=== PATIENT | male | born 1995 | race Caucasian/White ===

== ENCOUNTER 2017-04-22 10:17 | Day surgery (SDC) | payer OTHER ==
[2017-04-21 14:12] VITALS: BMI 26.8
[2017-04-22] MEDS ORDERED: PROPOFOL 20 ML ONE ×3 (10:55)
[2017-04-22 11:51] VITALS: TEMP 98.2
[2017-04-22 12:36] VITALS: BP 105/61; PULSE 69
--- NOTE | 2017-04-25 12:24 | PATH ---
Surgical Pathology Report Patient Name: DEEP CLARKE [facility]. Rec. #: [id number] /Age/Gender: 1995 (Age: 21) / M Account: [id number] Location: U-ENDOSCOPY Taken: 04/22/2017 Received: 04/22/2017 Reported: 04/25/2017 Physicians: Sage Jon M.D. Specimen(s) Received A: BX ILEUM B: BX LEFT COLON C: BX RECTUM Clinical History Diarrhea, family history of colon cancer Proctitis, hemorrhoids, nodular mucosa ileum Final Diagnosis A. ILEUM, BIOPSY: SMALL INTESTINAL MUCOSA WITH REACTIVE FOLLICULAR HYPERPLASIA OF MUCOSA ASSOCIATED LYMPHOID TISSUE. NO ACTIVE INFLAMMATION IDENTIFIED. B. COLON, LEFT, BIOPSY: COLONIC MUCOSA WITH REACTIVE FOLLICULAR HYPERPLASIA OF MUCOSA ASSOCIATED LYMPHOID TISSUE. NO ACTIVE INFLAMMATION IDENTIFIED. NO MICROSCOPIC COLITIS IDENTIFIED. C. COLON, RECTUM, BIOPSY: COLONIC MUCOSA WITH REACTIVE FOLLICULAR HYPERPLASIA OF MUCOSA ASSOCIATED LYMPHOID TISSUE. NO ACTIVE INFLAMMATION IDENTIFIED. NO MICROSCOPIC COLITIS IDENTIFIED. Comment: The findings may indicate some form of antigenic stimulation to the GI tract. Electronically Signed Linus Vega M.D. Gross Description A. Received in formalin, labeled "biopsy ileum" are 2 lubin, irregular portions of soft tissue averaging 0.3 cm. in greatest dimension. The specimens are submitted in toto in one cassette. B. Received in formalin, labeled "biopsy left colon" is a lubin, irregular portion of soft tissue measuring 0.3 cm. in greatest dimension. The specimen is submitted in toto in one cassette. C. Received in formalin, labeled "biopsy rectum" are 2 lubin, irregular portions of soft tissue measuring 0.3 and 0.5 cm. in greatest dimension. The specimens are submitted in toto in one cassette. 04/22/2017 saudi04/22/2017
== END 2017-04-22 13:07 | disposition home or self-care (01) ==
LOC: JASU-ENDO 10:17
PROVIDERS: ATTEND Internal Medicine Gastroenterology
PROC: 0DBG8ZX Excision of Left Large Intestine, Via Natural or Artificial Opening Endoscopic, Diagnostic (ICD-10-PCS; 2017-04-22)
PROC: 0DBB8ZX Excision of Ileum, Via Natural or Artificial Opening Endoscopic, Diagnostic (ICD-10-PCS; principal; 2017-04-22 12:00)
DX: K52.9 Noninfective gastroenteritis and colitis, unspecified (principal); Z80.0 Family history of malignant neoplasm of digestive organs; K64.8 Other hemorrhoids
CPT/HCPCS: 88305-TC

== ENCOUNTER 2017-12-15 06:30 | Day surgery (SDC) | payer OTHER ==
[2017-12-13 18:43] VITALS: BMI 27.3
[2017-12-15] MEDS ORDERED: MIDAZOLAM HCL 2 MG/2 ML SINGLE DOSE VIAL ONE (08:08)
[2017-12-15] MEDS ORDERED: PROPOFOL 20 ML ONE ×3 (08:08)
--- NOTE | 2017-12-15 08:15 | HP ---
[facility] - Chief Complaint Chief Complaint: right wrist mass History of Present Illness: right wrist mass History Source: Patient Limitations to Obtaining History: No Limitations - Past Medical History Allergies/Adverse Reactions: Allergies Allergy/AdvReac Type Severity Reaction Status Date / Time No Known Allergies Allergy Verified 12/13/17 18:36 - Current Medications Current Medications: Home Medications Medication Instructions Recorded Multivitamin [One Daily] 1 each PO DAILY 04/21/17 Satellite Physical Exam - Physical Examination Vital Signs: Vital Signs Period Temp Pulse Resp BP Sys/Polk Pulse Ox Last 24 Hr 97.6 F 58 20 136/75 100 General Appearance: Well Nourished ENT: Clear Lung: Clear to auscultation Heart: Regular rate & rhythm Breasts: Soft Abdomen: Soft Extremities: No edema Satellite Impression/Plan - Impression/Plan Impression: right wrist mass Operative Procedure: excision mass right wrist Date to be Performed: 12/15/17
[2017-12-15] MEDS ORDERED: ceFAZolin SODIUM 1 GM VIAL ONE (08:25)
[2017-12-15] MEDS ORDERED: LIDOCAINE HCL 1%, 10 MG/ML (20ML VIAL) NR ONE ×2 (08:31)
[2017-12-15] MEDS ORDERED: BUPIVACAINE HCL/PF 0.5% (5MG/ML) 10 ML VIAL IJ ONE ×2 (08:31)
--- NOTE | 2017-12-15 09:02 | OP ---
Operative Note - Note: Operative Date: 12/15/17 Pre-Operative Diagnosis: right dorsal wrist mass Operation: excision mass, right wrist Post-Operative Diagnosis: Same as Pre-op Surgeon: Joseph Hand Anesthesiologist/SCRAP BREAKER: Miller Lizama Anesthesia: Local, MAC Specimens Removed: mass, right wrist Estimated Blood Loss (mls): 0 Drains, Volume Out (mls): 0 Blood Volume Replaced (mls): 0 Fluid Volume Replaced (mls): 500 Operative Report Dictated: Yes
[2017-12-15] MEDS ORDERED: ACETAMINOPHEN 325 MG TABLET (FP) PO PRN (09:04)
[2017-12-15] MEDS ORDERED: ONDANSETRON 4 MG/2 ML VIAL IVPUSH PRN (09:04)
[2017-12-15] MEDS ORDERED: oxyCODONE HCL 5 MG TABLET PO PRN (09:04)
[2017-12-15] MEDS ORDERED: LACTATED RINGERS SOLUTION 1,000 ML IV SCH (09:15)
--- NOTE | 2017-12-15 09:31 | OP ---
DATE OF OPERATION: 12/15/2017 PREOPERATIVE DIAGNOSIS: Right wrist mass. POSTOPERATIVE DIAGNOSIS: Right wrist mass. PROCEDURE: Right dorsal wrist mass excision. SURGEON: Joseph Grimaldo MD PATIENT CARRIER: None. ANESTHESIOLOGIST: Miller Lizama DO ANESTHESIA: MAC anesthesia with local injection of 10 mL of 0.5% Marcaine and 1% lidocaine mix. DRAINS: None. COMPLICATIONS: None. SPECIMEN: Mass, dorsal aspect, right wrist. BLOOD LOSS: None. BLOOD GIVEN: None. FLUID REPLACEMENT: 500 mL. This patient is a 22-year-old male with the preoperative diagnosis of a painful mass on the dorsal aspect of his right wrist. After understanding the potential risks, complications, alternatives and benefits of surgical versus nonsurgical treatment patient elected to undergo this procedure. The patient does understand he will have a scar, he may need physical therapy and there is a 1% chance of recurrence of this mass at this or any other location and he also understands there is a risk of temporary or permanent paresthesias. He was brought to the operating room. Peripheral IV placed. IV sedation given. Ancef IV 1 g was given. MAC anesthesia was induced. Right upper extremity was prepped and draped in sterile fashion. A longitudinal incision was marked out over this longitudinal mass on the dorsal aspect of his right wrist. It was injected with 10 mL of 0.5% Marcaine and 1% lidocaine mix. The right upper extremity was then elevated, exsanguinated with an Esmarch bandage and tourniquet inflated to 250 mmHg. Next a longitudinal incision was made with a No. 15 scalpel. Subcutaneous hemostasis achieved with the bipolar cautery. Dissection done under the subcutaneous adipose layer that from the mass beneath it. Self-retaining retractors were placed into the wound. There was a combination of tenosynovium and what looked like a ganglion cyst coming up from the dorsal wrist capsule between the dorsal extensor tendons in the mid aspect of the carpus. Circumferential dissection was done. Additional dissection was done of this mass and tenosynovium off the extensor tendons. The extensor tendons were retracted in a radial and ulnar direction, further exposing the mass. An Allis clamp was placed on this mass and it was pulled upwards and under tension I found the stalk. I dissected down to the base of the stalk which was decapitated at its base off the dorsal wrist capsule and passed off the field as specimen. I cauterized the base, irrigated the area, looked and still could not see or feel any other abnormal tissue. he area was irrigated again and closure begun. Closure was done with 4-0 undyed Vicryl in the deep dermal layer and final skin reapproximation was done with a running subcuticular 4-0 Biosyn stitch. The area was then washed and dried, covered in Xeroform gauze, 4 x 4 gauze, fluffs between the fingers, Webril and Coban. The tourniquet was taken down after a total tourniquet time of 23 minutes. There were no complications during the case. The patient tolerated the procedure quite well and was brought to the ambulatory recovery room in stable condition. JOSEPH GRIMALDO M.D. [id number]
[2017-12-15 09:47] VITALS: TEMP 97.9
[2017-12-15 11:16] VITALS: BP 110/59; PULSE 58
--- NOTE | 2017-12-19 09:46 | PATH ---
Surgical Pathology Report Patient Name: DEEP CLARKE Med. Rec. #: [id number] /Age/Gender: 1995 (Age: 22) / M Account: [id number] Location: [facility] SURGICAL Taken: 12/15/2017 Received: 12/15/2017 Reported: 12/19/2017 Physicians: Joseph Hand M.D. Specimen(s) Received MASS OF RIGHT WRIST Clinical History Mass right wrist Final Diagnosis RIGHT WRIST, MASS, EXCISION: SYNOVIAL TISSUE, FIBROUS TISSUE, AND ADJACENT MATURE ADIPOSE TISSUE. 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 CLINICAL CORRELATION IS RECOMMENDED. Electronically Signed Zachary Conley M.D. Gross Description Received in formalin labeled "mass right wrist," is a 2.0 x 1.0 x 0.3 cm aggregate of lubin-yellow, irregular portions of soft tissue. The specimen is entirely submitted in one cassette. /12/15/2017 saudi12/15/2017
== END 2017-12-15 11:00 | disposition home or self-care (01) ==
LOC: JASU-SURG 06:30
PROVIDERS: ATTEND Orthopaedic Surgery
PROC: 0JBG0ZZ Excision of Right Lower Arm Subcutaneous Tissue and Fascia, Open Approach (ICD-10-PCS; principal; 2017-12-15 08:00)
DX: D48.1 Neoplasm of uncertain behavior of connective and other soft tissue (principal)
CPT/HCPCS: 88307-TC; 94760

== ENCOUNTER 2020-07-02 12:37 | Inpatient (IN) | payer BC, OTHER ==
[~2020-07-02 12:37] MED LIST: BUPIVACAINE HCL 0.25% 125 MG/50 ML VIAL NR ONE
[2020-07-02] MEDS ORDERED: CEFTRIAXONE 1,000 MG in DEXTROSE 5%-WATER - 50 ML IVPB ONE (13:06)
[2020-07-02] MEDS ORDERED: SODIUM CHLORIDE 0.9% 500 ML INFUS.BAG IV ONE (13:07)
[2020-07-02] MEDS ORDERED: ACETAMINOPHEN 1000 MG/100 ML VIAL (NON FORMULARY) IVPB ONE (13:55)
[2020-07-02] MEDS ORDERED: ACETAMINOPHEN INJECTION 100 ML IVPB ONE (14:06)
[2020-07-02] MEDS ORDERED: BUPIVACAINE HCL/PF 0.25% (2.5MG/ML) 10 ML VIAL ONE (14:19)
[2020-07-02 14:48] LABS: BASO % 0.2 % (0-2.0); EOS % 0.3 % (0-4.5); HEMATOCRIT 41.4 % (35.4-49); HEMOGLOBIN 13.8 GM/dL (11.7-16.9); LYMPH % 19.4 % (8-40); MCHC 33.3 g/dl (32.0-35.9); MEAN PLT VOLUME 9.2 fl (7.5-11.1); MONO % 7.8 % (3.8-10.2); NEUT % 72.3 % (42.8-82.8); PLATELET COUNT 177 K/MM3 (134-434); RBC 4.76 M/mm3 (4.00-5.60); WHITE BLOOD COUNT 10.4 K/mm3 (4.0-10.0)
[2020-07-02] MEDS ORDERED: CEFTRIAXONE 1 GM/50 ML BAG ONE (14:48)
[2020-07-02] MEDS ORDERED: MIDAZOLAM HCL 2 MG/2 ML SINGLE DOSE VIAL ONE (14:51)
[2020-07-02] MEDS ORDERED: PROPOFOL 20 ML ONE (14:52)
[2020-07-02] MEDS ORDERED: fentaNYL CITRATE 250 MCG/5 ML VIAL ONE (14:52)
[2020-07-02] MEDS ORDERED: ROCURONIUM BROMIDE 50 MG/5 ML SYRINGE ONE (14:52)
[2020-07-02] MEDS ORDERED: SUCCINYLCHOLINE CHLORIDE 200 MG/10 ML SYRINGE ONE (14:53)
[2020-07-02] MEDS ORDERED: LIDOCAINE HCL/PF 2% SDV 5ML VIAL ONE (14:53)
[2020-07-02] MEDS ORDERED: DEXAMETHASONE SOD PHOSPHATE 4 MG/1 ML VIAL ONE (14:53)
[2020-07-02 14:57] LABS: INR 1.24 (0.83-1.09); PROTHROMBIN TIME (PATIENT) 14.9 SEC (9.7-13.0)
[2020-07-02] MEDS ORDERED: PROMETHAZINE HCL 25 MG/1 ML VIAL IVPUSH PRN (14:57)
[2020-07-02] MEDS ORDERED: ONDANSETRON 4 MG/2 ML VIAL IVPUSH PRN ×2 (14:57→16:37)
[2020-07-02] MEDS ORDERED: oxyCODONE HCL 5 MG TABLET PO PRN (14:57)
[2020-07-02 14:58] LABS: POTASSIUM 3.9 mmol/L (3.5-5.1)
[2020-07-02 14:59] LABS: CALCIUM 9.3 mg/dL (8.5-10.1)
[2020-07-02 15:00] LABS: ACTIVATED PTT 30.9 SECONDS (25.2-36.5); ALBUMIN 4.3 g/dl (3.4-5.0); BLOOD UREA NITROGEN 14.2 mg/dL (7-18)
[2020-07-02] MEDS ORDERED: LACTATED RINGERS SOLUTION 1,000 ML IV SCH (15:00)
[2020-07-02 15:03] LABS: CREATININE 1.1 mg/dL (0.55-1.3)
[2020-07-02 15:05] LABS: BILIRUBIN,TOTAL 0.9 mg/dL (0.2-1); TOT PROT 7.4 g/dl (6.4-8.2)
[2020-07-02] MEDS ORDERED: BUPIVACAINE HCL 0.25% 125 MG/50 ML VIAL NR ONE (15:23)
[2020-07-02] MEDS ORDERED: GLYCOPYRROLATE 0.2 MG/1 ML VIAL ONE (15:48)
[2020-07-02] MEDS ORDERED: BUPIVACAINE HCL/PF 0.25% (2.5MG/ML) 10 ML VIAL IJ ONE (15:48)
[2020-07-02] MEDS ORDERED: KETOROLAC TROMETHAMINE 30 MG/1 ML VIAL ONE (15:48)
[2020-07-02] MEDS ORDERED: NEOSTIGMINE METHYLSULFATE 0.5 MG/ML - 10 ML MDV ONE (15:49)
[2020-07-02] MEDS ORDERED: KETOROLAC TROMETHAMINE 30 MG/1 ML VIAL IVPUSH PRN (16:13)
[2020-07-02] MEDS ORDERED: ACETAMINOPHEN 1000 MG/100 ML VIAL (NON FORMULARY) IVPB PRN (16:14)
[2020-07-02] MEDS: LACTATED RINGERS SOLUTION 1,000 ML IV SCH (17:45)
[2020-07-02 18:12] VITALS: BMI 29.2
[2020-07-02] MEDS ORDERED: FLU VACCINE (FLULAVAL) PF 60 MCG/0.5 ML SYRINGE 2020-2021 IM ONE (18:18)
[2020-07-03 01:29] VITALS: TEMP 98.3
[2020-07-03] MEDS: LACTATED RINGERS SOLUTION 1,000 ML IV SCH (05:44)
[2020-07-03 08:33] LABS: INR 1.36 (0.83-1.09); PROTHROMBIN TIME (PATIENT) 16.6 SEC (9.7-13.0)
[2020-07-03 08:40] LABS: BASO % 0.2 % (0-2.0); EOS % 0.1 % (0-4.5); HEMATOCRIT 39.2 % (35.4-49); HEMOGLOBIN 13.4 GM/dL (11.7-16.9); LYMPH % 15.9 % (8-40); MCHC 34.3 g/dl (32.0-35.9); MEAN CELL VOLUME 87.5 fl (80-96); MEAN PLT VOLUME 9.3 fl (7.5-11.1); MONO % 8.6 % (3.8-10.2); NEUT % 75.2 % (42.8-82.8); PLATELET COUNT 163 K/MM3 (134-434); RBC 4.48 M/mm3 (4.00-5.60); RDW 13.2 % (11.9-15.9); WHITE BLOOD COUNT 8.8 K/mm3 (4.0-10.0)
[2020-07-03 08:54] LABS: POTASSIUM 4.1 mmol/L (3.5-5.1)
[2020-07-03 08:56] LABS: CALCIUM 8.8 mg/dL (8.5-10.1)
[2020-07-03 08:57] LABS: ALBUMIN 3.5 g/dl (3.4-5.0); MAGNESIUM 2.2 mg/dL (1.8-2.4)
[2020-07-03 09:01] LABS: PHOSPHOROUS 3.5 mg/dL (2.5-4.9)
[2020-07-03 09:02] LABS: BILIRUBIN,TOTAL 0.7 mg/dL (0.2-1); TOT PROT 6.5 g/dl (6.4-8.2)
[2020-07-03] MEDS ORDERED: CEFTRIAXONE 1 GM in DEXTROSE 5%-WATER - 50 ML IVPB SCH (10:00)
[2020-07-03 14:35] VITALS: BP 123/76; PULSE 75
== END 2020-07-03 17:15 | disposition home or self-care (01) | DRG 343 ==
LOC: JER 12:37 → JERBED 13:35 → J6S 17:54
PROC: 0DTJ4ZZ Resection of Appendix, Percutaneous Endoscopic Approach (ICD-10-PCS; principal; 2020-07-02 14:30)
DX: K35.80 Unspecified acute appendicitis (principal); R10.31 Right lower quadrant pain
CPT/HCPCS: 36415; 80053; 83735; 84100; 85025; 85610; 85730; 86850; 86900; 86901; 88304-TC; 94760; 99285-25